=== PATIENT | male | born 1990 | race Caucasian/White ===

== ENCOUNTER 2022-02-21 21:06 | Emergency (ER) | payer OTHER, SELFPAY ==
--- NOTE | ~2022-02-21 | XR_ITS ---
EXAMINATION: XR hand RT min 3V DATE: 02/21/2022 21:41 INDICATION: Glass laceration at the posterior right hand TECHNIQUE: Posteroanterior, oblique and lateral views of the right hand were obtained. COMPARISON: None. FINDINGS: Bone alignment is normal. No fracture. Joint spaces are normal. Laceration with small amount of soft tissue gas at the ulnar aspect of the fifth proximal interphalangeal joint. Mild soft tissue swelling dorsal to the head of the third metacarpal. No radiopaque foreign bodies. IMPRESSION: 1. No osseous abnormality or radiopaque foreign body. Reviewed, dictated and finalized at location A. [facility] HELPER
[2022-02-21 21:10] VITALS: BP 160/89; PULSE 118; RESP 18; TEMP 36.4; O2SAT 95
--- NOTE | 2022-02-21 21:56 | ED.WOUNDLAC ---
HPI - Wound/Laceration General Chief Complaint: Wound/Laceration Stated Complaint: cut right pinky finger Time Seen by Provider: 02/21/22 21:16 History of Present Illness HPI narrative: 31-year-old male presents to the emergency room for evaluation of multiple lacerations to his right fifth digit. States he was washing dishes prior to arrival when a glass broke cutting his finger. States his tetanus is up-to-date. Review of Systems Review of Systems: CONSTITUTIONAL: Denies fever, chills, or sweats. EYES: Denies visual changes, redness, or discharge. ENT: Denies rhinorrhea, congestion, sore throat, or otalgia. CARDIOVASCULAR: Denies chest pain, palpitations, or edema. RESPIRATORY: Denies cough or dyspnea. GASTROINTESTINAL: Denies abdominal pain, nausea, vomiting, or diarrhea. GENITOURINARY: Denies dysuria or hematuria. SKIN: Reports lacerations to her right fifth digit MUSCULOSKELETAL: Denies back pain, joint pain, or myalgia. NEUROLOGIC: Denies headache, numbness, dizziness, or weakness. PSYCHIATRIC: Denies anxiety or depression. Exam Narrative: GENERAL: Well-appearing, well-nourished, no physical limitations, and in no acute distress. HEAD: Normocephalic, atraumatic. EYES: Conjunctivae normal, PERRLA and EOMI. CHEST: Clear to auscultation. No respiratory distress. No wheezes rales or rhonchi. ABDOMEN: Soft, nontender, nondistended, normal active bowel sounds. EXTREMITIES: Normal range of motion. No edema. No clubbing or cyanosis SKIN: 2 lacerations to right fifth digit. Laceration #1: 2.5 cm linear laceration. Laceration #2: 2.5 cm flap laceration neurovascular is intact distally NEURO: No focal deficits. Alert and oriented x3. MAEW. CN's II-XI intact bilaterally, normal gait PSYCH: Cooperative. Normal mood and affect. Course Vital Signs Vital signs: Vital Signs Temperature 36.4 C L 02/21/22 21:10 Pulse Rate 118 H 02/21/22 21:10 Respiratory Rate 18 02/21/22 21:10 Blood Pressure 160/89 H 02/21/22 21:10 Pulse Oximetry 95 02/21/22 21:10 Temperature 36.4 C L 02/21/22 21:10 Pulse Rate 118 H 02/21/22 21:10 Respiratory Rate 18 02/21/22 21:10 Blood Pressure 160/89 H 02/21/22 21:10 Pulse Oximetry 95 02/21/22 21:10 Procedures Laceration Laceration 1: Date: 02/21/22 Time: 22:54 Site: upper extremity Side (If applicable): right Size (cm): 25 Description: linear Depth: simple, single layer Local Anesthetic: lidocaine 1% Amount of anesthesia used (mL): 3 Pre-repair: irrigated ====== Skin Level ====== Skin layer closed with: nylon Size (cm): 5-0 Number of sutures: 5 Technique: simple, interrupted ====== Subcutaneous Layer ====== ====== Muscle Layer ====== ====== Tendon Layer ====== Laceration 2: Date: 02/21/22 Time: 22:55 Site: hand Side (If applicable): right Size (cm): 2.5 Description: flap Depth: simple, single layer Local Anesthetic: lidocaine 1% Amount of anesthesia used (mL): 3 Pre-repair: irrigated ====== Skin Level ====== Skin layer closed with: nylon Size (cm): 5-0 Number of sutures: 5 Technique: simple, interrupted ====== Subcutaneous Layer ====== ====== Muscle Layer ====== ====== Tendon Layer ====== Discharge Plan Discharge Clinical Impression: Laceration Patient Disposition: Home, Self-Care Condition: Stable Instructions: Antibiotic Form, Laceration (ED) Additional Instructions: Sutures come out in 10 days. Monitor for signs of infection which include redness, swelling, tenderness and purulent drainage. Keep wound clean dry and covered Follow-up/Referrals: PHYSICIAN,EVENT COORDINATOR [Primary Care Provider] - Time of Disposition: 22:56
== END 2022-02-21 23:00 | disposition home or self-care (01) ==
PROVIDERS: Emergency Provider Nurse Practitioner Family
DX: S61.216A Laceration without foreign body of right little finger without damage to nail, initial encounter (principal); W25.XXXA Contact with sharp glass, initial encounter
CPT/HCPCS: 12002; 73130; 99283